=== PATIENT | male | born 2000 | race Caucasian/White ===

== ENCOUNTER 2021-01-10 20:31 | Emergency (ER) | payer OTHER, BC ==
[~2021-01-10] VITALS: Ht 167.7 cm; Wt 97.7 kg
[2021-01-10] MEDS ORDERED: CEPHALEXIN 250 MG (KEFLEX) CAP PO ONE (21:15)
--- NOTE | 2021-01-10 21:16 | ED Upper Extremity ---
General Chief Complaint: Upper Extremity Stated Complaint: L INDEX FINGER LAC Source: patient Exam Limitations: no limitations History of Present Illness Date Seen by Provider: Jan 10, 2021 Time Seen by Provider: 21:15 Initial Comments To ER with reports of having smashed the left pointer finger in a roller while at work at [employer] just prior to arrival. Tetanus is up-to-date. Onset: just prior to arrival Severity: moderate Pain/Injury Location: left 2nd finger Method of Injury: direct blow Modifying Factors: Worse With Movement Allergies and Home Medications Allergies Coded Allergies: No Known Drug Allergies (Unverified , 01/10/21) Home Medications Cephalexin 500 Mg Tablet, 500 MG PO QID Prescribed by: DESTINI PARIS on 01/10/212140 Hydrocodone/Acetaminophen 1 Each Tablet, 1 TAB PO Q4H PRN for PAIN-MODERATE (5- 7) Prescribed by: DESTINI PARIS on 01/10/212140 Patient Home Medication List Home Medication List Reviewed: Yes Review of Systems Constitutional: see HPI EENTM: see HPI Respiratory: no symptoms reported Cardiovascular: no symptoms reported Genitourinary: no symptoms reported Musculoskeletal: see HPI Psychiatric/Neurological: No Symptoms Reported Physical Exam Vital Signs Vital Signs - First Documented 01/10/21 20:59 Temp 37.1 Pulse 104 Resp 18 B/P (MAP) 136/87 (103) Pulse Ox 98 Capillary Refill : Height, Weight, BMI Height: '" Weight: lbs. oz. kg; BMI Method: General Appearance: WD/WN, no apparent distress HEENT: PERRL/EOMI, normal ENT inspection Respiratory: no respiratory distress, no accessory muscle use Shoulder: normal inspection, non-tender Elbow/Forearm: normal inspection, non-tender Wrist: Yes normal inspection, Yes non-tender Hand: Left, laceration, limited ROM, nail injury, soft tissue tenderness Neurologic/Psychiatric: alert, normal mood/affect, oriented x 3 Skin: normal color, warm/dry Progress/Results/Core Measures Results/Orders My Orders Orders - DESTINI PARIS [employer] Rx-Hydrocodone/Apap 5-325 Mg (Rx-Vicodin (01/10/21 21:15) Cephalexin Capsule (Keflex Capsule) (01/10/21 21:15) Finger(S) (01/10/21 21:10) Medications Given in ED Departure Communication (Admissions) 2137-There is an open tuft fracture of the left pointer finger. He received Keflex 500 mg here. A digital block was done. Wound and finger were then scrubbed with chlorhexidine/saline solution and irrigated with the same. The small piece of the distal phalanx bone that was exposed was covered with briskly bleeding soft tissue after tissues were reapproximated. No exposed bone. Part of the pad of the finger was also avulsed. 3 sutures were used simple interrupted size 5-0 Prolene to reapproximate the distal tip of the finger. The fingernail itself is completely absent. The nailbed laceration is distal on the nailbed. We will apply Xeroform then tube gauze. Give him some antibiotics and pain medication. He should return in 48 hours for wound check. Impression Primary Impression: Crush injury of fingertip Additional Impression: Avulsion of fingertip Disposition: HOME, SELF-CARE Condition: Stable Departure-Patient Inst. Decision time for Depature: 21:39 Referrals: DARYN ROMERO,LOCAL PHYSICIAN (PCP) Primary Care Physician GINA PRICE MD Patient Instructions: Wound Care ED Add. Discharge Instructions: 1. Return to ER in 48 hours for a dressing change. Call one of the orthopedic surgeons listed tomorrow to make an appointment to be seen for follow-up as soon as they can see you. Pain medication and antibiotics as directed. All discharge instructions reviewed with patient and/or family. Voiced understanding. Scripts Hydrocodone/Acetaminophen (Hydrocodone-Acetamin 5-325 mg) 1 Each Tablet 1 TAB PO Q4H PRN for PAIN-MODERATE (5-7), #20 TAB Prov: DESTINI PARIS APRN 01/10/21 Cephalexin (Cephalexin) 500 Mg Tablet 500 MG PO QID, #20 TAB Prov: DESTINI PARIS APRN 01/10/21 Work/School Note: Work Release Form Date Seen in the Emergency Department: Jan 10, 2021 Return to Work: Jan 11, 2021 Other Restrictions Listed Below: No use of left hand until released. DESTINI PARIS APRN Jan 10, 2021 21:16
--- NOTE | 2021-01-10 21:30 | Diagnostic Imaging Report ---
INDICATION: Crush injury FINDINGS: There is a fracture mildly comminuted at the terminal tuft of the 2nd finger. The joint space is intact. Proximal and distal interphalangeal joints normal. Remaining bony structures intact. IMPRESSION: A fracture through the terminal tuft of the distal phalanx of the 2nd finger. Dictated by: Dictated on workstation # [id number]
[2021-01-10] MEDS ORDERED: ACHD5005 PO (21:41)
[2021-01-10] MEDS ORDERED: CEPH500T PO (21:41)
[2021-01-10 22:03] VITALS: BP 136/87
== END 2021-01-10 22:04 | disposition home or self-care (01) ==
LOC: ER 20:36
DX: S67.191A Crushing injury of left index finger, initial encounter (principal); S62.631A Displaced fracture of distal phalanx of left index finger, initial encounter for closed fracture; W23.0XXA Caught, crushed, jammed, or pinched between moving objects, initial encounter
CPT/HCPCS: 73140

== ENCOUNTER 2021-01-12 13:14 | Emergency (ER) | payer OTHER, BC ==
[~2021-01-12] VITALS: Ht 170 cm; Wt 91.0 kg
[~2021-01-12 13:14] MED LIST: ACHD5005 PO; CEPH500T PO
[2021-01-12 13:15] VITALS: BP 148/94
--- NOTE | 2021-01-12 13:32 | ED Suture Removal/Wound Check ---
Suture/Wound Re-check Suture Removal/Wound Recheck : Progress wound is looking good. Brisk capillary refill. There is no area that is grossly necrotic nor infected. Sutures remain in place. Wound was then recovered with Xeroform dressing and tube gauze. He has an appointment with occupational health tomorrow. General Appearance: WD/WN, no apparent distress Neuro/Tendon: normal sensation, responds to pain Skin Exam: normal color, warm/dry Physical Exam Vital Signs Capillary Refill : General Appearance: WD/WN, no apparent distress Respiratory: no respiratory distress, no accessory muscle use Extremities: non-tender, other (As above) Neurologic/Psychiatric: alert, normal mood/affect, oriented x 3 Skin: normal color, warm/dry Skin Problem Character: other Departure Impression Primary Impression: Visit for wound check Disposition: HOME, SELF-CARE Condition: Critical Departure-Patient Inst. Decision time for Depature: 13:31 Referrals: NO,LOCAL PHYSICIAN (PCP/Family) Primary Care Physician Patient Instructions: Wound Care (DC) Add. Discharge Instructions: 1. Continue the antibiotics. Go home and taken ibuprofen which you can take every 8 hours if need be. Usually the dose is 3-4 of the [id number] tablets every 8 hours. It is safe to take this in addition to the hydrocodone. If the dressing is not removed tomorrow then you can return to the emergency room for wound check on Saturday. All discharge instructions reviewed with patient and/or family. Voiced understanding. Work/School Note: Work Release Form Date Seen in the Emergency Department: Jan 12, 2021 Return to Work: Jan 13, 2021 DESTINI PARIS APRN Jan 12, 2021 13:32
== END 2021-01-12 13:37 | disposition home or self-care (01) ==
LOC: EDUNIT# 13:14 → ER 13:15
DX: Z48.00 Encounter for change or removal of nonsurgical wound dressing (principal)
CPT/HCPCS: 99281